=== PATIENT | male | born 1950 | race Caucasian/White ===

== ENCOUNTER → 2016-06-09 | Outpatient (CLI) | payer OTHER ==
[~2016-06-09] MED LIST: IOPAMIDOL (ISOVUE-300) 100 ML BTL IV ONE
[2016-06-09 15:36] LABS: CREATININE 0.9 mg/dL (0.7-1.3); GLOMERULAR FILTRATION RATE > 60
== END ==
LOC: FIMAGING 14:42
PROVIDERS: ATTEND Internal Medicine
DX: K59.00 Constipation, unspecified (principal); I70.0 Atherosclerosis of aorta; Z98.890 Other specified postprocedural states
CPT/HCPCS: 74177; Q9967

== ENCOUNTER → 2016-07-23 | Outpatient (CLI) | payer OTHER | LOC: FIMAGING 08:49 | PROVIDERS: ATTEND Internal Medicine | DX: M51.36 Other intervertebral disc degeneration, lumbar region (principal); M48.06 Spinal stenosis, lumbar region; M99.73 Connective tissue and disc stenosis of intervertebral foramina of lumbar region; M51.26 Other intervertebral disc displacement, lumbar region; R60.0 Localized edema ==

== ENCOUNTER → 2017-04-24 | Outpatient (CLI) | payer OTHER | LOC: FIMAGING 10:15 | PROVIDERS: ATTEND Psychiatry & Neurology Neurology | DX: G95.89 Other specified diseases of spinal cord (principal); M53.83 Other specified dorsopathies, cervicothoracic region; M48.03 Spinal stenosis, cervicothoracic region; M50.33 Other cervical disc degeneration, cervicothoracic region; M25.78 Osteophyte, vertebrae ==

== ENCOUNTER → 2017-08-09 | Outpatient (CLI) | payer OTHER | LOC: FIMAGING 12:45 | PROVIDERS: ATTEND Internal Medicine Rheumatology | DX: Z13.820 Encounter for screening for osteoporosis (principal); M81.0 Age-related osteoporosis without current pathological fracture ==

== ENCOUNTER → 2017-08-10 | Outpatient (CLI) | payer OTHER | LOC: FIMAGING 11:48 | PROVIDERS: ATTEND Internal Medicine | DX: R91.1 Solitary pulmonary nodule (principal) ==

== ENCOUNTER → 2018-01-06 | Outpatient (CLI) | payer OTHER | LOC: BHLMT 11:30 | PROVIDERS: ATTEND Nurse Practitioner Family | DX: R07.9 Chest pain, unspecified (principal); G47.33 Obstructive sleep apnea (adult) (pediatric); Z82.49 Family history of ischemic heart disease and other diseases of the circulatory system | CPT/HCPCS: 93005-PO ==

== ENCOUNTER → 2018-01-25 | Outpatient (CLI) | payer OTHER | LOC: BHFA 09:00 | PROVIDERS: ATTEND Internal Medicine Cardiovascular Disease | DX: R07.9 Chest pain, unspecified (principal) | CPT/HCPCS: 78452; 93017; A9500; J2785 ==

== ENCOUNTER 2018-02-02 08:08 | Day surgery (SDC) | payer OTHER ==
[2018-02-02] MEDS ORDERED: DIAZEPAM 5 MG TAB PO ONE (08:12)
[2018-02-02] MEDS ORDERED: diphenhydrAMINE 25 MG CAP PO ONE (08:12)
[2018-02-02] MEDS ORDERED: ASPIRIN EC 325 MG TAB PO ONE (08:12)
[2018-02-02] MEDS ORDERED: FAMOTIDINE 20 MG TAB PO ONE (08:12)
[2018-02-02] MEDS ORDERED: NS 1,000 ML IV ONE (08:12)
--- NOTE | 2018-02-02 08:44 | PDHPUP ---
History & Physical Update H&P update statement: This history and physical update is based on an assessment of the patient which was completed after admission or registration (within 24 hours), but prior to the surgery/procedure. H&P update: H&P reviewed & patient examined, no change in patient's condition since H&P completed
--- NOTE | 2018-02-02 08:44 | PDPROPOC ---
Sedation Plan of Care Sedation Plan of Care: vital signs stable, mental status noted, patient educated of risks, benefits, alternatives, patient can tolerate sedation ASA Classification: ASA 3 Planned drugs: fentanyl, midazolam Mallampati Score: Class 3 Mallampati Reference Image: Patient passed 3-3-2 rule?: Yes
[2018-02-02 08:49] LABS: PLATELET COUNT 180 10^3/uL (150-400)
[2018-02-02 08:58] LABS: INR 1.04 (0.83-1.16); PROTIME(PATIENT) 13.8 SEC (12.0-15.0)
[2018-02-02] MEDS ORDERED: LIDOCAINE 1% 300 MG/30 ML SDV ONE (09:08)
[2018-02-02] MEDS ORDERED: VERAPAMIL 5 MG/2 ML VIAL ONE (09:08)
[2018-02-02] MEDS ORDERED: HEPARIN 10,000 UNIT/10 ML MDV (1,000 UNIT/ML) ONE (09:08)
[2018-02-02] MEDS ORDERED: MIDAZOLAM 2 MG/2 ML VIAL ONE (09:08)
[2018-02-02] MEDS ORDERED: fentaNYL 100 MCG/2 ML INJ ONE (09:08)
[2018-02-02] MEDS ORDERED: IOPAMIDOL (ISOVUE-370) 150 ML BTL IV ONE (09:08)
--- NOTE | 2018-02-02 09:47 | PDDXCAT ---
Diagnostic Cath Note - . Date: 02/02/18 Chlorination Operator: Valdez Indication: CCC Class III and IV angina on medical treatment, other ( INTERMEDIATE RISK STRESS TEST) - Procedure Access: right wrist Procedure: left heart catheterization, coronary angiography, left ventriculogram - Materials Left Heart Cath size: 5F Left Heart Cath materials: JL4.0, JR4.0, pigtail - Findings-Left Heart Catheterization LM: The left main is 5mm and bifurcates into a LAD and Circumflex system. There is no evidence of flow limting obstruction. There is WILLA III flow. LAD: The Left anterior descending is 3mm in size. There are luminal irregularities proximally consistent with atherosclerosis. There is 10% maximal stenosis and WILLA III flow. The distal thir of the LAD has an appearance suggestive of intral myocardial course. LCX: The circumflex is 3.25mm in size and gives rise to an important bifurcating obtuse marginal branch. There are no flow limiting obstruction. RCA: The right coronary artery is 3mm in size and dominant. The RCA gives rise to the posterior descending artery and the posterolateral ventricular branch. There is no flow limiting obstruction. EDP: 21mmHg LVEF: 60% Wall motion: On the LV gram there is normal LV systolic function. The EF is 60% . There are no resting segmental wall motion abnormalities. The visualized portion of the thoracic aortic valve reveals three sinuses of valsalva most consistent with a trileaflet valve. THere is 1+ mitral regurgitation which maybe secondary to ventricular ectopy or pressurized injection. There is no gradient on pullback across the aortic valve and outflow tract. There is no evidence of colette dissection or aneurysm formation. - Findings-Right Heart Catheterization AO: Complications: NONE Estimated blood loss: <50ml Closure method: Angioseal Assessment: The patient has evidence of non-flow limiting coronary disease as described above with normal ejection fraction. There is a modestly elevated LVEDP with a preserved systolic function and mild mitral regurgitation which may be catheter or pressure injection related. Plan: The patient has non-flow limiting coronary disease that should be treated medically to achieve a Non-HDL Cholesterol of less than 100 mg/dL, LDL less than 70mg/dL and and anti platelet therapy with ASA is also recommended specifically a dose of 81 to 162 mg per day. The stress test appears to be a false negative study. Intervention: NONE
--- NOTE | 2018-02-02 09:58 | CPEKG ---
Test Reason : OPEN Blood Pressure : / mmHG Vent. Rate : 050 BPM Atrial Rate : 051 BPM P-R Int : 169 ms QRS Dur : 090 ms QT Int : 442 ms P-R-T Axes : 065 070 047 degrees QTc Int : 403 ms Sinus rhythm Non-specific ST depression. Confirmed by Mendez Burton ([id number]) on 02/02/2018 9:58:06 AM Referred By: Confirmed By:Mendez Burton
[2018-02-02] MEDS ORDERED: NITROGLYCERIN 0.4 MG BTL SL PRN (10:15)
[2018-02-02] MEDS ORDERED: OXYCODONE/APAP 5/325 TAB PO PRN (10:15)
[2018-02-02] MEDS ORDERED: HYDROCODONE/APAP 5/325 TAB PO PRN (10:15)
[2018-02-02] MEDS ORDERED: ONDANSETRON 4 MG/2 ML VIAL IVP PRN (10:15)
[2018-02-02] MEDS ORDERED: ATROPINE SULFATE 1 MG/10 ML SYR IVP PRN (10:15)
[2018-02-02] MEDS ORDERED: NON-FORMULARY NEW DRUG (Ranitidine Hcl [Zantac 75] 75 MG) PO PRN (10:17)
[2018-02-02] MEDS ORDERED: BACLOFEN 20 MG TAB PO SCH (12:00)
[2018-02-02] MEDS ORDERED: DIAZEPAM 2 MG TAB PO SCH (16:00)
[2018-02-02] MEDS ORDERED: ATENOLOL 25 MG TAB PO SCH (21:00)
[2018-02-02] MEDS ORDERED: POLYETHYLENE GLYCOL 3350 17 GM PKT PO SCH (21:00)
[2018-02-03] MEDS ORDERED: MULTIVITAMINS 1 EACH TAB PO SCH (09:00)
[2018-02-03] MEDS ORDERED: CALCIUM CARBONATE 500 MG TAB PO SCH (09:00)
[2018-02-03] MEDS ORDERED: ASPIRIN 81 MG CHEWABLE TAB PO SCH (09:00)
[2018-02-03] MEDS ORDERED: MAGNESIUM OXIDE 400 MG TAB PO SCH (09:00)
[2018-02-03] MEDS ORDERED: TAMSULOSIN HCL 0.4 MG CAP PO SCH (09:00)
[2018-02-03] MEDS ORDERED: CHOLECALCIFEROL VIT D3 1,000 UNITS TAB PO SCH (09:00)
== END 2018-02-02 15:25 | disposition home or self-care (01) ==
LOC: FCATH 08:08
PROVIDERS: ATTEND Internal Medicine Cardiovascular Disease
DX: I25.119 Atherosclerotic heart disease of native coronary artery with unspecified angina pectoris (principal); R07.89 Other chest pain; Z82.49 Family history of ischemic heart disease and other diseases of the circulatory system; G47.33 Obstructive sleep apnea (adult) (pediatric)
CPT/HCPCS: 93005; 93458; C1769; J1644; J2250; J3010; Q9967

== ENCOUNTER → 2018-02-27 | Outpatient (CLI) | payer OTHER | LOC: BMCIMAGING 12:06 | PROVIDERS: ATTEND Family Medicine | DX: S99.911A Unspecified injury of right ankle, initial encounter (principal) ==

== ENCOUNTER → 2018-07-20 | Outpatient (CLI) | payer OTHER | LOC: FIMAGING 14:51 ==

== ENCOUNTER 2018-08-09 14:57 | Inpatient (IN) | payer OTHER | END 2018-08-11 11:52 | disposition home or self-care (01) | LOC: FIMAGING 14:57 → F3N 18:45 ==

== ENCOUNTER 2018-08-11 17:55 | Emergency (ER) | payer OTHER | END 2018-08-11 18:30 | disposition home or self-care (01) | DX: [UNRECOGNIZED DIAGNOSIS CODE] ==